=== PATIENT | male | born 1985 | race Caucasian/White ===

== ENCOUNTER 2023-04-22 17:37 | Emergency (ER) | payer OTHER ==
[2023-04-22 18:43] LABS: CORONAVIRUS COVID-19 NAA NEGATIVE (NEGATIVE); INFLUENZA A NAA NEGATIVE (NEGATIVE); INFLUENZA B NAA NEGATIVE (NEGATIVE)
[2023-04-22] MEDS ORDERED: predniSONE 10 MG Tab PO STA (19:08)
== END 2023-04-22 19:14 | disposition home or self-care (01) ==
LOC: MW.ED 17:37
DX: J40 Bronchitis, not specified as acute or chronic (principal); Z79.2 Long term (current) use of antibiotics; Z20.822 Contact with and (suspected) exposure to COVID-19
CPT/HCPCS: 0240U; 71045; 99285; A9270; 99283